=== PATIENT | male | born 1965 ===

== ENCOUNTER 2021-05-31 10:37 | Outpatient (CLI) | payer BC ==
[2021-05-31 23:10] LABS: SARS-CoV-2 PCR by NAA Not Detected (NotDetected)
== END 2021-05-31 10:38 | disposition home or self-care (01) ==
LOC: CSHLAB 10:37
PROVIDERS: ATTEND Internal Medicine Gastroenterology
DX: Z20.822 Contact with and (suspected) exposure to COVID-19 (principal); R33.9 Retention of urine, unspecified
CPT/HCPCS: U0003; U0005